=== PATIENT | female | born 1985 | race Caucasian/White ===

== ENCOUNTER → 2024-06-06 13:39 | Outpatient (REF) | payer BC, SELFPAY | LOC: MRI 3T 13:39 | PROVIDERS: ATTENDING PHYSICIAN Student in an Organized Health Care Education/Training Program; FAMILY PHYSICIAN Nurse Practitioner | DX: S76.012A Strain of muscle, fascia and tendon of left hip, initial encounter (principal) | CPT/HCPCS: 27093; 73525; 73722 ==